=== PATIENT | female | born 1935 | race Caucasian/White ===

== ENCOUNTER 2020-02-16 07:57 | Outpatient (CLI) | payer MEDICARE, OTHER ==
[2020-02-17 12:28] LABS: SARS-CoV-2 MS2 Positive; SARS-CoV-2 N Gene Negative; SARS-CoV-2 S Gene Negative; SARS-CoV-2 by NAA Not Detected (NotDetected); SARS-CoV-2 orf1ab Negative
== END 2020-02-16 07:58 | disposition home or self-care (01) ==
LOC: LABBT 07:57
PROVIDERS: ATTEND Specialist
DX: Z20.828 Contact with and (suspected) exposure to other viral communicable diseases (principal)
CPT/HCPCS: 87635; U0003

== ENCOUNTER 2020-02-19 05:47 | Day surgery (SDC) | payer MEDICARE ==
[2020-02-18 10:15] VITALS: BMI 29.6
[2020-02-19] MEDS ORDERED: EPINEPHrine 1 MG/ML AMP ONE (07:05)
[2020-02-19] MEDS ORDERED: Bupivacaine PF 0.5% 30 ML VIAL ONE (07:05)
[2020-02-19] MEDS ORDERED: Midazolam HCl 2 mg/2 ml Vial ONE (07:10)
[2020-02-19] MEDS ORDERED: Fentanyl 100 MCG/2 ML VIAL ONE (07:10)
[2020-02-19] MEDS ORDERED: Propofol 500 MG/50 ML VIAL ONE (07:10)
[2020-02-19] MEDS ORDERED: Levofloxacin 500 mg/D5W 100 ml Premix Bag ONE (07:51)
[2020-02-19 07:58] LABS: Anion Gap 16 mmol/L (10-20); BUN (Urea Nitrogen) 21 mg/dL (9.8-20.1); Calc. Creatinine Clearance 44 mL/min (70-130); Calcium 8.9 mg/dL (7.8-10.44); Carbon Dioxide 21 mmol/L (23-31); Chloride 109 mmol/L (98-107); Estimated GFR-MDRD 41; Glucose 93 mg/dL (83-110); Potassium 4.7 mmol/L (3.5-5.1); Sodium 141 mmol/L (136-145)
--- NOTE | 2020-02-19 09:59 | RAD ---
EXAM: XR Thoracic Spine 1 View PROVIDED CLINICAL HISTORY: Dorsal pain column stimulator. COMPARISON: None FINDINGS/IMPRESSION: Single AP fluoroscopic image lower thoracic spine is submitted for interpretation. Provided image dem onstrates partial visualization of dorsal column stimulator leads overlying the thoracic spine. One of the vertebral bodies is labeled T8 on fluoroscopic image, and the tip of the dorsal column stimula tor lead terminates at the T7-8 level. Correlation with intraoperative findings is recommended.
[2020-02-19] MEDS ORDERED: Morphine 2 MG/ML VIAL ONE (10:36)
[2020-02-19] MEDS ORDERED: Lidocaine 1% PF 5 ML VIAL ONE (11:40)
[2020-02-19] MEDS ORDERED: PROPOFOL 200 MG/20 ML VIAL ONE (11:40)
[2020-02-19] MEDS ORDERED: HYDROcodone/Acetaminophen 5/325 mg Tablet ONE ×2 (11:53)
--- NOTE | 2020-02-20 09:35 | OP ---
DATE OF PROCEDURE: 02/19/2020 PREOPERATIVE DIAGNOSES: 1. Chronic pain syndrome. 2. Postlaminectomy syndrome. 3. Lumbar radiculopathy. POSTOPERATIVE DIAGNOSES: 1. Chronic pain syndrome. 2. Postlaminectomy syndrome. 3. Lumbar radiculopathy. PROCEDURES PERFORMED: 1. Spinal cord stimulator generator implant. 2. Spinal cord stimulator lead implant x2, 8-contact [employer] leads. SPECIMENS: No specimens removed. ESTIMATED BLOOD LOSS: 5 mL. DESCRIPTION OF PROCEDURE: The patient was taken to the procedure room and placed prone on the procedure room table. A time-out was performed. Using DuraPrep, we prepped the back and sterile drapes were applied. We located the interspace of T12-L1 and L1-2 under x-ray guidance. We anesthetized the skin and made a vertical incision between the interspaces and blunt dissected this down to fascia. Once down to the fascia, we inserted the supplied 14-gauge Tuohy needle using a paramedian technique to engage into the ligament. From the left side, we targeted an interspace of L1-2. Once engaged to the ligament, we used loss of resistance to air to achieve access to the epidural space. Aspiration was negative for heme or CSF. The 8-contact lead was placed into the needle, brought into the dorsal epidural space and threaded up the midline dorsal epidural space towards just right of midline to the bottom of T8. We performed the exact same procedure on the contralateral side, but this time using the interspace of T12-L1. The lead that was placed in this was just left of midline and threaded to the bottom of T7. Stimulation was performed with the patient awake and she felt paresthesia in all pain areas. We then took the needles out taking care not to move the lead itself. Anchors were placed over the lead and brought down to fascia. These were secured in place with 2-0 silk suture x2. We then turned our attention to the battery pocket in the right upper buttock. We made a horizontal incision after anesthetizing with 0.5% Marcaine with epinephrine. We blunt dissected this down to Kam's fascia and then dissected inferior and superiorly to make a battery pocket. We used a tunneling device to make a tunnel between the two pockets. Threaded the leads through the tunneling device and brought them to the battery pocket. These were connected to the battery and a torque wrench was used to fixate these to the battery. Impedances were checked, which were all good. The battery was inserted to the pocket easily. We approximated fascial layers with 2-0 Vicryl suture in simple interrupted stitches as well as horizontal mattress stitch. We then used 3-0 Rapide Vicryl for a subcuticular stitch. Once the skin was closed, we used Dermabond as an occlusive dressing. Once this was dry, we placed sterile 4 x 4's as well as Medipore tape to cover the incision. The patient was taken to Day Stay under stable condition. Job ID: [id number]
== END 2020-02-19 12:30 | disposition home or self-care (01) ==
LOC: SDC 05:47
PROVIDERS: ATTEND Specialist
PROC: 0JH70DZ Insertion of Multiple Array Stimulator Generator into Back Subcutaneous Tissue and Fascia, Open Approach (ICD-10-PCS; principal; 2020-02-19)
PROC: 00HU3MZ Insertion of Neurostimulator Lead into Spinal Canal, Percutaneous Approach (ICD-10-PCS; 2020-02-19)
DX: G89.4 Chronic pain syndrome (principal); M96.1 Postlaminectomy syndrome, not elsewhere classified; M54.16 Radiculopathy, lumbar region; G90.523 Complex regional pain syndrome I of lower limb, bilateral; M48.061 Spinal stenosis, lumbar region without neurogenic claudication; Z79.02 Long term (current) use of antithrombotics/antiplatelets; Z79.82 Long term (current) use of aspirin; Z79.899 Other long term (current) drug therapy; Z88.0 Allergy status to penicillin; Z88.2 Allergy status to sulfonamides
CPT/HCPCS: 63650 ×2; 63685; 72020; 76000; 80048; 93005; C1778; C1787; J2270; L8679; L8689; 93010; J0171; J1956; J2250; J2704; J3010; S0020